=== PATIENT | female | born 1955 | race Caucasian/White ===

== ENCOUNTER 2018-11-12 14:55 | Observation (INO) | payer OTHER ==
[~2018-11-12] VITALS: Ht 167.6 cm; Wt 57.2 kg
[2018-11-12 15:02] VITALS: BP 171/97
--- NOTE | 2018-11-12 15:11 | NUR ---
PT AMB TO BED 12 WITH STEADY GAIT
--- NOTE | 2018-11-12 15:24 | NUR ---
PT BIB SELF TO THE ED WITH THE CHIEF C/O LEFT CHEST PAIN RADIATION TO LEFT ARM FOR A MONTH. PT HAS HX OF HLD AND HTN. PT IS NOT TAKING HER MEDICINE RECENTLY BECAUSE SHE WANTS TO GO NATURAL THERAPY. SHE IS HAVING MORE PRESSURE PAIN ON HER CHEST, DIZZINESS. SOB AND DIFFICULTY BREATHHINGLY RECENTLY. DENIES RECENT FEVER, N/D. HAD DIARRHEA X2 TODAY. PT ALSO REPORTS LOWER BACK PAINA ND FREQUENCY OF URINE. A/O X4. AMBULATORY. BP NOTED ELEVATED.
[2018-11-12 16:31] LABS: BASOPHILS % (AUTO) 0.7 % (0.0-2.0); EOSINOPHILS % (AUTO) 0.7 % (0.0-4.0); HEMATOCRIT 39.7 % (36-48); HEMOGLOBIN 13.2 g/dL (12.0-16.0); LYMPHOCYTES # (AUTO) 1.8 K/uL (2.5-16.5); LYMPHOCYTES % (AUTO) 40.3 % (20.5-51.1); MEAN CORPUSCULAR HEMOGLOBIN 30 pg (27-31); MEAN CORPUSCULAR HGB CONC 33 g/dL (33-37); MEAN CORPUSCULAR VOLUME 89.1 fL (80-94); MONOCYTES # (AUTO) 0.3 K/uL (0.8-1.0); MONOCYTES % (AUTO) 7.3 % (1.7-9.3); NEUTROPHILS # (AUTO) 2.2 K/uL (1.8-7.7); PLATELET COUNT (AUTO) 223 K/uL (140-450); RED BLOOD CELL COUNT(AUTO) 4.45 MIL/uL (4.20-5.40); RED CELL DISTRIBUTION WIDTH 13.3 % (11.6-13.7); WHITE BLOOD COUNT (AUTO) 4.4 K/uL (4.8-10.8)
[2018-11-12 16:45] LABS: ANION GAP 11.8 (8-16); CARBON DIOXIDE 29.5 mmol/L (21-32); CREATININE 0.9 mg/dL (0.6-1.3); POTASSIUM 4.3 mmol/L (3.5-5.1)
[2018-11-12 16:46] LABS: PROTHROMBIN TIME 9.5 secs (10.8-13.4)
[2018-11-12 16:48] LABS: ALBUMIN 3.8 g/dL (3.4-5.0); TOTAL BILIRUBIN 0.4 mg/dL (0.0-1.0)
--- NOTE | 2018-11-12 17:30 | NUR ---
ER AWARE OF ELEVATED BP.
[2018-11-12] MEDS ORDERED: ALBUTEROL 0.083% 2.5 MG/3 ML NEBU INH PRN (18:15)
[2018-11-12] MEDS ORDERED: MORPHINE SULFATE 2 MG/ML SYR IVP PRN (18:15)
[2018-11-12] MEDS ORDERED: ONDANSETRON 4 MG/2 ML VIAL IVP PRN (18:15)
[2018-11-12] MEDS ORDERED: hydrALAZINE 20 MG/ML VIAL IVP PRN (18:15)
[2018-11-12] MEDS ORDERED: ACETAMINOPHEN 325 MG TAB PO PRN (18:15)
[2018-11-12] MEDS ORDERED: HYDROcodone/APAP 5/325 MG 1 TAB TAB PO PRN (18:15)
[2018-11-12] MEDS ORDERED: LOVA20TA8 PO (18:49)
[2018-11-12] MEDS ORDERED: LISI5TAB18 PO (18:49)
--- NOTE | 2018-11-12 18:55 | NUR ---
Patient admitted to care of Dr. Lin. Admited to tele unit. Transferred to room 121B via [facility] on stable condition. Belongings list completed. Report to RASHARD Valle.
--- NOTE | 2018-11-12 19:15 | NUR ---
RECEIVED REPORT FROM DAY SHIFT NURSE. AAOX4. PT DENIES PAIN OR SOB AT THIS TIME. IV TO RIGHT AC #20G, SALINE LOCK. SKIN INTACT. ORIENTED PT TO ROOM. DISCUSSED PLAN OF CARE, PT VERBALIZED UNDERSTANDING. FRIENDS AT BEDSIDE. SAFETY PRECAUTION IN PLACE.
[2018-11-12 19:35] VITALS: BP 138/79
--- NOTE | 2018-11-12 20:00 | NUR ---
SNACK PROVIDED TO PATIENT. ALL NEEDS ATTENDED AT THIS TIME. CALL LIGHT WITHIN REACH.
--- NOTE | 2018-11-12 22:18 | NUR ---
PT WATCHING TV. NO C/O PAIN OR SOB. PT REFUSED SCD, AMBULATES WITHOUT ASSIST.
[2018-11-13] VITALS: BP 131/67
--- NOTE | 2018-11-13 00:30 | NUR ---
PT SLEEPING BUT EASILY AROUSABLE. DENIES PAIN. RESP EVEN AND UNLABORED. CALL LIGHT WITHIN REACH.
--- NOTE | 2018-11-13 02:50 | NUR ---
PT SLEEPING. NO S/S OF PAIN. NO S/S OF RESP DISTRESS. CALL LIGHT WITHIN REACH.
[2018-11-13 04:00] VITALS: BP 140/67
--- NOTE | 2018-11-13 04:45 | NUR ---
PT LYING IN BED, AWAKE. NO C/O PAIN OR DISCOMFORT AT THIS TIME. NO SOB NOTED. ALL NEEDS ATTENDED AT THIS TIME. CALL LIGHT WITHIN REACH.
--- NOTE | 2018-11-13 06:30 | NUR ---
PATIENT STATED SHE HAD MILD INTERMITTENT PRESSURE ON HER LEFT CHEST. PT DENIES SOB. PT REFUSED PAIN MEDS.
--- NOTE | 2018-11-13 07:10 | NUR ---
ENDORSED PT TO DAY SHIFT NURSE. PT IN STABLE CONDITION. PT DENIES PAIN AND SOB AT THIS TIME.
--- NOTE | 2018-11-13 07:11 | NUR ---
RECEIVED BEDSIDE REPORT FROM NIGHT NURSE. PT BREATHING UNLABORED AND WITH NO OBVIOUS SIGNS OF DISTRESS OR PAIN. ALL SAFETY MEASURES IN PLACE AND CALL LIGHT WITHIN REACH. PT HAS A RIGHT ANTECUBITAL IV THAT IS ASYMPTOMATIC AND PATENT SALINE LOCKED. PT AOX4. DENIES ANY CHEST PAIN AT THIS TIME.
[2018-11-13 07:37] LABS: BASOPHILS % (AUTO) 0.7 % (0.0-2.0); EOSINOPHILS # (AUTO) 0.1 K/uL (0-0.4); EOSINOPHILS % (AUTO) 1.6 % (0.0-4.0); HEMATOCRIT 40.4 % (36-48); HEMOGLOBIN 13.3 g/dL (12.0-16.0); LYMPHOCYTES # (AUTO) 1.7 K/uL (2.5-16.5); LYMPHOCYTES % (AUTO) 45.3 % (20.5-51.1); MEAN CORPUSCULAR HEMOGLOBIN 29 pg (27-31); MEAN CORPUSCULAR HGB CONC 33 g/dL (33-37); MEAN CORPUSCULAR VOLUME 88.8 fL (80-94); MONOCYTES # (AUTO) 0.3 K/uL (0.8-1.0); MONOCYTES % (AUTO) 7.1 % (1.7-9.3); NEUTROPHILS # (AUTO) 1.7 K/uL (1.8-7.7); NEUTROPHILS % (AUTO) 45.3 % (42.2-75.2); PLATELET COUNT (AUTO) 210 K/uL (140-450); RED BLOOD CELL COUNT(AUTO) 4.55 MIL/uL (4.20-5.40); RED CELL DISTRIBUTION WIDTH 13.5 % (11.6-13.7); WHITE BLOOD COUNT (AUTO) 3.8 K/uL (4.8-10.8)
[2018-11-13 07:44] LABS: CARBON DIOXIDE 28.3 mmol/L (21-32); CREATININE 0.8 mg/dL (0.6-1.3); POTASSIUM 4.3 mmol/L (3.5-5.1)
[2018-11-13 07:48] LABS: MAGNESIUM 1.8 mg/dL (1.8-2.4); PHOSPHORUS 4.1 mg/dL (2.5-4.9)
[2018-11-13 08:00] VITALS: BP 153/73
[2018-11-13] MEDS ORDERED: ASPIRIN 81 MG TAB.CHEW PO SCH (09:00)
--- NOTE | 2018-11-13 09:17 | NUR ---
ADMINISTERED MEDICATIONS, PT ONLY REQUEST IS TO SPEAK TO PAEDIATRICIAN. INFORMED HER THAT MD DOES NOT ARRIVE ON A SET SCHEDULE AND MAY NOT BE HERE UNTIL LATER IN THE AFTERNOON. PT STATES IF THAT IS THE CASE SHE MAY NOT WANT TO WAIT ALL DAY. NO CHEST PAIN OR SIGNS OF DISTRESS AT THIS TIME.
--- NOTE | 2018-11-13 09:34 | NUR ---
CALLED DR CHAVARRIA OFFICE PER PT REQUEST FOR WHEN WILL SEE PT AND TO VERIFY IF CONSULTATION HAS BEEN PROCESSED. INFORMED HE WILL CALL ME BACK.
--- NOTE | 2018-11-13 10:09 | NUR ---
PT RESTING IN BED NO OBVIOUS SIGNS OF DISTRESS.
--- NOTE | 2018-11-13 11:01 | NUR ---
DR CHAVARRIA AT BEDSIDE TALKING TO PATIENT.
[2018-11-13] MEDS ORDERED: amLODIPine 5 MG TAB PO SCH (11:18)
[2018-11-13 12:00] VITALS: BP 146/73
--- NOTE | 2018-11-13 12:00 | NUR ---
PT REFUSING AMLODIPINE DR CHAVARRIA AT BEDSIDE AWARE. DR CHAVARRIA STATES PT IS OKAY TO DISCHARGE.
--- NOTE | 2018-11-13 12:05 | NUR ---
DR CHAVARRIA INFORMED ME TO ADMINISTER LISINOPRIL NOW AHEAD OF SCHEDULE PATIENT IS DISCHARGING AND DID NOT RECEIVE IT YET TODAY.
[2018-11-13] MEDS ORDERED: LISINOPRIL 5 MG TAB PO SCH (12:48)
--- NOTE | 2018-11-13 13:31 | NUR ---
DISCHARGED PT AFTER REVIEWING DISCHARGE INSTRUCTIONS AND OBTAINING ALL SIGNATURES WITH NO QUESTIONS FROM PT. PT IV ALSO REMOVED WITH IV INTACT AND GAUZE AND BANDAID APPLIED NO BLEEDING. ALL ID BANDS REMOVED AND DISPOSED OF IN SHREDDER. PT ESCORTED VIA WHEELCHAIR TO HER CAR WHERE SHE TRANSPORTED HERSELF HOME PER HER OWN REQUEST. TELEMETRY BOX RETURNED TO STATIONARY ENGINEER.
[2018-11-13] MEDS ORDERED: SIMVASTATIN 10 MG TAB PO SCH (21:00)
[2018-11-14] MEDS ORDERED: NON-FORMULARY ITEM (Lovastatin 1 TAB) PO SCH (09:00)
[2018-11-14] MEDS ORDERED: amLODIPine 5 MG TAB PO SCH (09:00)
[2018-11-14] MEDS ORDERED: LISINOPRIL 5 MG TAB PO SCH (09:00)
== END 2018-11-13 13:20 | disposition home or self-care (01) ==
LOC: MED 14:55 → INTOOBSV 18:19 → MTU 18:19
PROVIDERS: ADMIT Internal Medicine Pulmonary Disease; ATTEND Internal Medicine Pulmonary Disease
DX: R07.89 Other chest pain (principal); I10 Essential (primary) hypertension; E78.5 Hyperlipidemia, unspecified; I16.0 Hypertensive urgency; Z91.14 Patient's other noncompliance with medication regimen
CPT/HCPCS: 36415; 71045; 80048; 80053; 83036; 83735; 83880; 84100; 84484; 85025; 85610; 85730; 87081; 93005; 94760; 99291; G0378; Q0092

== ENCOUNTER 2020-09-07 05:56 | Day surgery (SDC) | payer OTHER, SELFPAY ==
[~2020-09-07] VITALS: Ht 153.7 cm; Wt 57.2 kg
[~2020-09-07 05:56] MED LIST: LISI5TAB18 PO; LOVA20TA8 PO
[2020-09-07] MEDS ORDERED: fentaNYL citrate 0.05 MG/ML VIAL ONE (07:09)
[2020-09-07] MEDS ORDERED: MIDAZOLAM 5 MG/5 ML VIAL ONE (07:10)
[2020-09-07] MEDS ORDERED: LIDOCAINE 2% 100 MG/5 ML UJET TP ONE ×2 (07:18→07:55)
[2020-09-07] MEDS ORDERED: SIMETHICONE 40 MG/0.6 ML PO PRN ×2 (07:55→08:25)
[2020-09-07] MEDS ORDERED: fentaNYL citrate 0.05 MG/ML VIAL IVP ONE ×2 (08:25→09:25)
[2020-09-07] MEDS ORDERED: SIMETHICONE 40 MG/0.6 ML ONE (08:31)
== END 2020-09-07 11:10 | disposition home or self-care (01) ==
LOC: MDS 05:56 → MMU 06:02 → MDS 11:10
PROVIDERS: ATTEND Internal Medicine Gastroenterology
DX: R14.0 Abdominal distension (gaseous) (principal); D12.4 Benign neoplasm of descending colon; K57.30 Diverticulosis of large intestine without perforation or abscess without bleeding; K64.8 Other hemorrhoids; Z80.0 Family history of malignant neoplasm of digestive organs; I10 Essential (primary) hypertension; E78.00 Pure hypercholesterolemia, unspecified; Z85.3 Personal history of malignant neoplasm of breast; F17.210 Nicotine dependence, cigarettes, uncomplicated; Z88.2 Allergy status to sulfonamides; Z79.899 Other long term (current) drug therapy; Z20.828 Contact with and (suspected) exposure to other viral communicable diseases
CPT/HCPCS: 45385; J2250; J3010; U0003

== ENCOUNTER 2020-10-05 06:31 | Day surgery (SDC) | payer OTHER, SELFPAY ==
[~2020-10-05] VITALS: Ht 153.7 cm; Wt 57.2 kg
[2020-10-05 07:00] LABS: BASOPHILS % (AUTO) 0.7 % (0.0-2.0); EOSINOPHILS # (AUTO) 0.1 K/uL (0-0.4); EOSINOPHILS % (AUTO) 1.1 % (0.0-4.0); HEMATOCRIT 35.3 % (36-48); HEMOGLOBIN 11.7 g/dL (12.0-16.0); LYMPHOCYTES # (AUTO) 1.7 K/uL (2.5-16.5); LYMPHOCYTES % (AUTO) 37.5 % (20.5-51.1); MEAN CORPUSCULAR HEMOGLOBIN 30 pg (27-31); MEAN CORPUSCULAR HGB CONC 33 g/dL (33-37); MEAN CORPUSCULAR VOLUME 90.8 fL (80-94); MONOCYTES # (AUTO) 0.4 K/uL (0.8-1.0); MONOCYTES % (AUTO) 8.6 % (1.7-9.3); NEUTROPHILS # (AUTO) 2.4 K/uL (1.8-7.7); NEUTROPHILS % (AUTO) 52.1 % (42.2-75.2); PLATELET COUNT (AUTO) 272 K/uL (140-450); RED BLOOD CELL COUNT(AUTO) 3.89 MIL/uL (4.20-5.40); RED CELL DISTRIBUTION WIDTH 13.3 % (11.6-13.7); WHITE BLOOD COUNT (AUTO) 4.6 K/uL (4.8-10.8)
[2020-10-05] MEDS ORDERED: fentaNYL citrate 0.05 MG/ML VIAL ONE (08:12)
[2020-10-05] MEDS ORDERED: LIDOCAINE 2% 1000 MG/50 ML VIAL INJ ONE (08:12)
[2020-10-05] MEDS ORDERED: MORPHINE SULFATE 2 MG/ML SYR IVP PRN (08:45)
[2020-10-05] MEDS ORDERED: fentaNYL citrate 0.05 MG/ML VIAL IVP ONE (09:50)
[2020-10-05] MEDS ORDERED: LIDOCAINE 2% 100 MG/5 ML UJET TP ONE (09:50)
== END 2020-10-05 09:40 | disposition home or self-care (01) ==
LOC: MDS 06:31 → MMU 06:32 → MDS 09:40
PROVIDERS: ATTEND Internal Medicine Gastroenterology
DX: R94.5 Abnormal results of liver function studies (principal); I10 Essential (primary) hypertension; E78.00 Pure hypercholesterolemia, unspecified; R14.0 Abdominal distension (gaseous); Z85.3 Personal history of malignant neoplasm of breast; Z80.0 Family history of malignant neoplasm of digestive organs; Z79.01 Long term (current) use of anticoagulants; Z79.899 Other long term (current) drug therapy; Z20.822 Contact with and (suspected) exposure to COVID-19
CPT/HCPCS: 36415; 47000; 76942; 85025; 85610; 85730; 88307; 88313; J2001; J2270; J3010; U0003